=== PATIENT | female | born 1950 | race Caucasian/White ===

== ENCOUNTER 2023-11-06 18:13 | Observation (INO) | payer MEDICARE ==
[~2023-11-06] VITALS: Ht 157.5 cm; Wt 99.8 kg
[~2023-11-06 18:13] MED LIST: ASPIRIN81 MG PO; ATORVASTATIN CA20 MG PO; LOSARTAN POTAS100 MG PO; MELOXICAM7.5 MG PO; METOPROLOL TART25 MG PO; NOVOLIN N100 UNIT/1 SQ; PLAVIX75 MG PO; TYLENOL WITH C1 EACH PO; ULTRAM50 MG PO
[2023-11-06 19:06] LABS: BASOPHILS % 0.1 % (0.0-1.0); EOSINOPHILS # (AUTO) 0.1 (0.0-0.4); EOSINOPHILS % 1.4 % (0.0-6.0); HEMATOCRIT 37.3 % (34.2-44.1); HEMOGLOBIN 12.2 g/dL (12.0-16.0); LYMPHOCYTES % 28.1 % (18.0-39.1); MEAN CORPUSCULAR HEMOGLOBIN 30.6 pg (28-32); MEAN CORPUSCULAR HGB CONC 32.7 g/dL (31-35); MEAN CORPUSCULAR VOLUME 93.5 fL (81-99); MONOCYTES # (AUTO) 0.7 (0.2-0.8); MONOCYTES % 9.7 % (4.4-11.3); NEUTROPHILS # (AUTO) 4.3 (2.1-6.9); NEUTROPHILS % 60.6 % (38.7-80.0); PLATELET COUNT 321 x10e3/uL (140-360); RED BLOOD COUNT 3.99 x10e6/uL (3.6-5.1); RED CELL DISTRIBUTION WIDTH 13.3 % (11.7-14.4); WHITE BLOOD COUNT 7.08 x10e3/uL (4.8-10.8)
[2023-11-06] MEDS: Morphine 4mg INJECTION 4 MG/ML INJ IV ONE (19:12)
[2023-11-06] MEDS: ONDANSETRON HCL INJ 2MG/ML 2ML 2 MG/ML VIAL IV STA ×2 (19:12→21:03)
[2023-11-06] MEDS: SODIUM CHLORIDE 0.9% 1000ML 1,000 ML IV ONE (19:13)
[2023-11-06 19:20] LABS: ALBUMIN 3.9 g/dL (3.5-5.0); ALBUMIN/GLOBULIN RATIO 1.1 (0.8-2.0); BILIRUBIN,TOTAL 0.5 mg/dL (0.2-1.2); CREATININE, SERUM 0.99 mg/dL (0.57-1.11); TOTAL PROTEIN 7.6 g/dL (6.5-8.1)
[2023-11-06] MEDS ORDERED: IOPAMIDOL 370 MG/ML 100 ML INFUS..BTL INJ ONE (19:40)
[2023-11-06] MEDS ORDERED: ONDANSETRON HCL INJ 2MG/ML 2ML 2 MG/ML VIAL ONE (20:06)
[2023-11-06 21:02] LABS: BILIRUBIN,URINE NEGATIVE (NEGATIVE); CLARITY,URINE SL CLOUDY (CLEAR); COLOR,URINE YELLOW (YELLOW); GLUCOSE, URINE 500 (NEGATIVE); KETONES,URINE NEGATIVE (NEGATIVE); LEUKOCYTE ESTERASE ,URINE NEGATIVE (NEGATIVE); NITRITE,URINE NEGATIVE (NEGATIVE); PH,URINE 6 (5 - 7); PROTEIN,URINE DIPSTICK 1+ (NEGATIVE); URINE UROBILINOGEN 0.2 mg/dL (0.2 - 1)
[2023-11-06] MEDS: HALOPERIDOL LACTATE 5 MG/ML VIAL IV ONE (21:03)
[2023-11-06 21:20] LABS: EPITHELIAL CELLS,URINE MODERATE /LPF; RBC,URINE 0-5 /HPF (0-5)
[2023-11-06] MEDS ORDERED: MELATONIN 5 MG TABLET PO PRN (23:00)
[2023-11-06] MEDS: SODIUM CHLORIDE 0.9% 1000ML 1,000 ML IV SCH (23:06)
[2023-11-06] MEDS: Morphine 4mg INJECTION 4 MG/ML INJ IV PRN (23:07)
[2023-11-06 23:34] VITALS: TEMP 98.3
[2023-11-07] VITALS (14 sets, daily range): BP systolic 138–169; BP diastolic 76–88; PULSE 68–101; RESP 16–20; TEMP 97.5–98.9; O2SAT 94–100
[2023-11-07] MEDS: ONDANSETRON HCL INJ 2MG/ML 2ML 2 MG/ML VIAL IV PRN (00:49)
[2023-11-07] MEDS ORDERED: LEVEMIR100 UNIT/1 SC (01:09)
[2023-11-07] MEDS ORDERED: NOVOLOG MI100 UNIT/1 SC (01:09)
[2023-11-07] MEDS ORDERED: BENICAR5 MG PO (01:12)
[2023-11-07] MEDS: FAMOTIDINE 20 MG TAB PO PRN (01:19)
[2023-11-07 05:48] LABS: BASOPHILS % 0.3 % (0.0-1.0); EOSINOPHILS # (AUTO) 0.1 (0.0-0.4); HEMOGLOBIN 11.4 g/dL (12.0-16.0); LYMPHOCYTES # (AUTO) 2.3 (1.0-3.2); LYMPHOCYTES % 32.2 % (18.0-39.1); MEAN CORPUSCULAR HEMOGLOBIN 30.3 pg (28-32); MEAN CORPUSCULAR HGB CONC 31.7 g/dL (31-35); MEAN CORPUSCULAR VOLUME 95.7 fL (81-99); MONOCYTES # (AUTO) 0.7 (0.2-0.8); MONOCYTES % 9.3 % (4.4-11.3); NEUTROPHILS % 56.9 % (38.7-80.0); PLATELET COUNT 285 x10e3/uL (140-360); RED BLOOD COUNT 3.76 x10e6/uL (3.6-5.1); RED CELL DISTRIBUTION WIDTH 13.5 % (11.7-14.4); WHITE BLOOD COUNT 6.98 x10e3/uL (4.8-10.8)
[2023-11-07 06:30] LABS: ALBUMIN 3.5 g/dL (3.5-5.0); ALBUMIN/GLOBULIN RATIO 1.1 (0.8-2.0); ANION GAP 14.3 mmol/L (8-16); BILIRUBIN,TOTAL 0.5 mg/dL (0.2-1.2); CALCIUM 8.4 mg/dL (8.4-10.2); CREATININE, SERUM 1.08 mg/dL (0.57-1.11); POTASSIUM 4.3 mmol/L (3.5-5.1); TOTAL PROTEIN 6.7 g/dL (6.5-8.1)
[2023-11-07 09:46] LABS: CHOL/HDL RATIO 2.8 (3.0-3.6)
[2023-11-07] MEDS: PROMETHAZINE 12.5MG/ NACL 0.9% 12.5 MG/50 ML BAG IV PRN (10:05)
[2023-11-07] MEDS: ASPIRIN 81 MG CHEW TAB PO SCH (10:05)
[2023-11-07] MEDS: OLMESARTAN MEDOXOMIL 5 MG TABLET PO SCH (10:05)
[2023-11-07] MEDS: HYDRALAZINE HCL 20 MG/ML VIAL IV PRN (12:03)
[2023-11-07] MEDS: HYDROCODONE/APAP 5MG-325MG TAB PO PRN (18:01)
[2023-11-07] MEDS: ACETAMINOPHEN 325 MG TAB PO PRN (22:22)
[2023-11-08] VITALS: BP 161/95; PULSE 76; RESP 18; TEMP 98; O2SAT 99
[2023-11-08 04:00] VITALS: BP 158/79; PULSE 79; RESP 20; TEMP 98.7; O2SAT 100
[2023-11-08 05:46] LABS: BASOPHILS % 0.5 % (0.0-1.0); EOSINOPHILS # (AUTO) 0.3 (0.0-0.4); HEMATOCRIT 32.6 % (34.2-44.1); HEMOGLOBIN 10.1 g/dL (12.0-16.0); LYMPHOCYTES # (AUTO) 2.2 (1.0-3.2); LYMPHOCYTES % 34.1 % (18.0-39.1); MEAN CORPUSCULAR HEMOGLOBIN 29.8 pg (28-32); MEAN CORPUSCULAR VOLUME 96.2 fL (81-99); MONOCYTES # (AUTO) 0.7 (0.2-0.8); MONOCYTES % 10.3 % (4.4-11.3); NEUTROPHILS # (AUTO) 3.2 (2.1-6.9); NEUTROPHILS % 49.8 % (38.7-80.0); PLATELET COUNT 261 x10e3/uL (140-360); RED BLOOD COUNT 3.39 x10e6/uL (3.6-5.1); RED CELL DISTRIBUTION WIDTH 13.5 % (11.7-14.4); WHITE BLOOD COUNT 6.43 x10e3/uL (4.8-10.8)
[2023-11-08 06:23] LABS: ALBUMIN 3.2 g/dL (3.5-5.0); ALBUMIN/GLOBULIN RATIO 1.2 (0.8-2.0); ANION GAP 11.7 mmol/L (8-16); BILIRUBIN,TOTAL 0.5 mg/dL (0.2-1.2); CALCIUM 8.2 mg/dL (8.4-10.2); CREATININE, SERUM 0.96 mg/dL (0.57-1.11); POTASSIUM 3.7 mmol/L (3.5-5.1); TOTAL PROTEIN 5.9 g/dL (6.5-8.1)
[2023-11-08 08:00] VITALS: BP 158/79; PULSE 79; RESP 20; TEMP 98.7; O2SAT 100
[2023-11-08 08:14] VITALS: BP 140/81; PULSE 66; RESP 18; TEMP 97.4; O2SAT 98
[2023-11-08] MEDS ORDERED: ASPIRIN CHEW81 MG PO (10:18)
[2023-11-08] MEDS ORDERED: MELOXICAM15 MG PO (10:18)
[2023-11-08] MEDS ORDERED: HYDROCODON-ACE1 EA11 PO (10:18)
[2023-11-08 11:28] VITALS: BP 134/80; PULSE 70; RESP 19; TEMP 98; O2SAT 100
== END 2023-11-08 11:55 | disposition home or self-care (01) ==
LOC: ER 18:21 → ERHOLD 22:46 → MED/SURG3 11-07 00:19
PROVIDERS: ADMIT Family Medicine Adult Medicine; ATTEND Family Medicine Adult Medicine
DX: R10.32 Left lower quadrant pain (principal); R11.2 Nausea with vomiting, unspecified; R19.7 Diarrhea, unspecified; E11.65 Type 2 diabetes mellitus with hyperglycemia; Z79.4 Long term (current) use of insulin; M16.12 Unilateral primary osteoarthritis, left hip; M54.50 Low back pain, unspecified; G89.29 Other chronic pain; I10 Essential (primary) hypertension; E78.5 Hyperlipidemia, unspecified; I25.10 Atherosclerotic heart disease of native coronary artery without angina pectoris; Z95.5 Presence of coronary angioplasty implant and graft; K57.30 Diverticulosis of large intestine without perforation or abscess without bleeding; E66.01 Morbid (severe) obesity due to excess calories; Z68.41 Body mass index [BMI] 40.0-44.9, adult; D35.02 Benign neoplasm of left adrenal gland; D35.01 Benign neoplasm of right adrenal gland; Z11.52 Encounter for screening for COVID-19; Z85.038 Personal history of other malignant neoplasm of large intestine; Z90.49 Acquired absence of other specified parts of digestive tract; Z79.899 Other long term (current) drug therapy; Z79.02 Long term (current) use of antithrombotics/antiplatelets; Z79.82 Long term (current) use of aspirin
CPT/HCPCS: 36415 ×3; 73502; 73551; 74177; 80053 ×3; 80061; 81001; 82948 ×2; 83690; 84484; 85025 ×3; 94799; 97116; 97162; 99284; G0378 ×3; J0360; J1630; J2270 ×2; J2405 ×2; J2550; J7030 ×2; Q9967; U0002

== ENCOUNTER 2024-07-17 08:32 | Inpatient (IN) | payer MEDICARE ==
[~2024-07-17] VITALS: Ht 157.5 cm; Wt 94.3 kg
[~2024-07-17 08:32] MED LIST changes: +AMLODIPINE BESYL5 MG PO; +ASPIRIN CHEW81 MG PO; +ASPIRIN81 MG; +BENICAR20 MG PO; +BENICAR5 MG PO; +CELEBREX200 MG PO; +D3-5000125 MCG; +DROPLET NE EAC; +FUROSEMIDE40 MG PO; +HYDROCODON-ACE1 EA11 PO; +HYDROCODON-ACE1 EA15 PO; +K-DUR10 MEQ PO; +K2-D3 10,000 U1 EACH; +LEVEMIR SQ; +LEVEMIR100 UNIT/1 SC; +MELOXICAM15 MG PO; +MIRTAZAPINE7.5 MG PO; +NOVOLOG MI100 UNIT/1 SC; +NOVOLOG100 UNIT/1 SC; +OLMESARTAN MEDO20 MG; +SPIRONOLACTONE25 MG PO; +TOUJEO SOL300 UNIT/1; +TOUJEO SOL300 UNIT/1 SQ
[2024-07-17] MEDS: LACTATED RINGER'S 1,000 ML ONE (09:23)
[2024-07-17] MEDS: CEFAZOLIN SODIUM 2 GM ONE (10:35)
[2024-07-17] MEDS ORDERED: FENTANYL CITRATE/PF 100MCG/2 ML INJ ONE ×3 (11:09→13:25)
[2024-07-17] MEDS ORDERED: MIDAZOLAM HCL 2 MG/2 ML VIAL ONE (11:09)
[2024-07-17] MEDS ORDERED: ONDANSETRON HCL INJ 2MG/ML 2ML 2 MG/ML VIAL ONE (11:54)
[2024-07-17] MEDS ORDERED: FAMOTIDINE 20 MG/2 ML VIAL IV ONE (11:54)
[2024-07-17] MEDS ORDERED: SUCCINYLCHOLINE CHLORIDE 20 MG/ML 10ML VIAL ONE (11:54)
[2024-07-17] MEDS ORDERED: ROCURONIUM BROMIDE 1 ML IV ONE (11:54)
[2024-07-17] MEDS ORDERED: ACETAMINOPHEN 1000 MG/100 ML 100 ML IV ONE (11:54)
[2024-07-17] MEDS ORDERED: DEXAMETHASONE SOD PHOS INJ 4 MG/ML SDV ONE (11:54)
[2024-07-17] MEDS ORDERED: SEVOFLURANE INHAL SOLN 250 ML PEN BTL ONE (11:54)
[2024-07-17] MEDS ORDERED: EPHEDRINE SULFATE INJ 50 MG/ML VIAL ONE (12:29)
[2024-07-17] MEDS ORDERED: PROPOFOL IV EMULSION 10 MG/ML 20 ML VIAL ONE ×2 (12:38)
[2024-07-17] MEDS ORDERED: SUGAMMADEX SODIUM 200 MG/2 ML VIAL IV ONE (13:00)
[2024-07-17] MEDS ORDERED: TRANEXAMIC ACID 1,000 MG/10 ML ML ONE ×2 (13:24→13:25)
[2024-07-17] MEDS ORDERED: LIDOCAINE HCL 2% LOCAL INJ 5 ML SDV VIAL INJ ONE (13:57)
[2024-07-17] MEDS: FENTANYL CITRATE/PF 100MCG/2 ML INJ IV ONE ×2 (14:20→14:25)
[2024-07-17] MEDS: ONDANSETRON HCL INJ 2MG/ML 2ML 2 MG/ML VIAL IV ONE (15:07)
[2024-07-17 15:22] VITALS: BP 110/71; PULSE 96; RESP 16; TEMP 98.7; O2SAT 100
[2024-07-17] MEDS ORDERED: DEXTROSE 50% SYRINGE 50 ML IV PRN ×2 (15:30→18:30)
[2024-07-17] MEDS ORDERED: ALBUTEROL/IPRATROPIUM 3 ML NEB NEB PRN (15:30)
[2024-07-17] MEDS ORDERED: POTASSIUM CHLORIDE 20 MEQ TAB CR PO PRN (15:30)
[2024-07-17] MEDS ORDERED: DIPHENHYDRAMINE HCL 25 MG CAP PO PRN (15:30)
[2024-07-17] MEDS ORDERED: HYDRALAZINE HCL 20 MG/ML VIAL IV PRN (15:30)
[2024-07-17 16:00] VITALS: BP 110/71; PULSE 96; RESP 16; TEMP 98.7; O2SAT 100
[2024-07-17 16:06] VITALS: PULSE 66; RESP 20; O2SAT 99
[2024-07-17] MEDS: FENTANYL CITRATE/PF 100MCG/2 ML INJ ONE (16:18)
[2024-07-17] MEDS: ROPIVACAINE/EPI/CLONIDINE/KET 50 ML SYRINGE INJ ONE (16:18)
[2024-07-17] MEDS ORDERED: ASPIRIN 81 MG CHEW TAB PO SCH (17:00)
[2024-07-17] MEDS: ENOXAPARIN SOD INJ 40 MG/0.4 ML SYR SC SCH (17:45)
[2024-07-17] MEDS: HYDROCODONE/APAP 7.5MG-325MG 1 EA TAB PO PRN (17:54)
[2024-07-17 20:00] VITALS: BP 125/74; PULSE 83; RESP 18; TEMP 97.3; O2SAT 98
[2024-07-17 20:05] VITALS: PULSE 83; RESP 18; O2SAT 98
[2024-07-17 21:00] VITALS: BP 125/74; PULSE 83; RESP 18; TEMP 97.3; O2SAT 98
[2024-07-17] MEDS: MELATONIN 5 MG TABLET PO PRN (21:21)
[2024-07-17] MEDS: CEFAZOLIN SODIUM 2 GM in SODIUM CHLORIDE 0.9% 100 ML IV SCH (21:21)
[2024-07-17] MEDS: INSULIN LISPRO 100 UNIT/1 ML 3ML VIAL SQ SCH (21:39)
[2024-07-17] MEDS: INSULIN GLARGINE 100 UNITS/ML VIAL SQ SCH (21:42)
[2024-07-17] MEDS: Morphine 4mg INJECTION 4 MG/ML INJ IV PRN (23:49)
[2024-07-18] VITALS (11 sets, daily range): BP systolic 114–170; BP diastolic 52–84; PULSE 74–88; RESP 16–20; TEMP 97.4–98.3; O2SAT 96–100
[2024-07-18] MEDS: ONDANSETRON HCL INJ 2MG/ML 2ML 2 MG/ML VIAL IV PRN (04:03)
[2024-07-18 07:25] LABS: BASOPHILS # (AUTO) 0.1 (0.0-0.1); BASOPHILS % 0.2 % (0.0-1.0); HEMATOCRIT 31.1 % (34.2-44.1); HEMOGLOBIN 10.2 g/dL (12.0-16.0); LYMPHOCYTES # (AUTO) 1.5 (1.0-3.2); LYMPHOCYTES % 7.1 % (18.0-39.1); MEAN CORPUSCULAR HEMOGLOBIN 30.4 pg (28-32); MEAN CORPUSCULAR HGB CONC 32.8 g/dL (31-35); MEAN CORPUSCULAR VOLUME 92.6 fL (81-99); MONOCYTES # (AUTO) 1.3 (0.2-0.8); MONOCYTES % 6.1 % (4.4-11.3); NEUTROPHILS # (AUTO) 17.9 (2.1-6.9); PLATELET COUNT 293 x10e3/uL (140-360); RED BLOOD COUNT 3.36 x10e6/uL (3.6-5.1); RED CELL DISTRIBUTION WIDTH 14.5 % (11.7-14.4); WHITE BLOOD COUNT 20.85 x10e3/uL (4.8-10.8)
[2024-07-18 07:46] LABS: ANION GAP 14.5 mmol/L (8-16); CALCIUM 8.6 mg/dL (8.4-10.2); CREATININE, SERUM 1.08 mg/dL (0.57-1.11); POTASSIUM 4.5 mmol/L (3.5-5.1)
[2024-07-18] MEDS: PANTOPRAZOLE SOD 40 MG TABEC PO SCH (08:32)
[2024-07-18] MEDS: DOCUSATE SODIUM 100 MG CAP PO PRN (21:06)
[2024-07-19] VITALS (9 sets, daily range): BP systolic 120–145; BP diastolic 59–71; PULSE 75–88; RESP 15–19; TEMP 97.6–99; O2SAT 96–100
[2024-07-19 05:09] LABS: BASOPHILS % 0.2 % (0.0-1.0); EOSINOPHILS # (AUTO) 0.1 (0.0-0.4); EOSINOPHILS % 0.4 % (0.0-6.0); HEMATOCRIT 30.5 % (34.2-44.1); HEMOGLOBIN 9.8 g/dL (12.0-16.0); LYMPHOCYTES # (AUTO) 2.7 (1.0-3.2); LYMPHOCYTES % 17.6 % (18.0-39.1); MEAN CORPUSCULAR HEMOGLOBIN 30.2 pg (28-32); MEAN CORPUSCULAR HGB CONC 32.1 g/dL (31-35); MEAN CORPUSCULAR VOLUME 93.8 fL (81-99); MONOCYTES # (AUTO) 1.3 (0.2-0.8); MONOCYTES % 8.2 % (4.4-11.3); NEUTROPHILS # (AUTO) 11.2 (2.1-6.9); NEUTROPHILS % 73.3 % (38.7-80.0); PLATELET COUNT 278 x10e3/uL (140-360); RED BLOOD COUNT 3.25 x10e6/uL (3.6-5.1); RED CELL DISTRIBUTION WIDTH 14.8 % (11.7-14.4); WHITE BLOOD COUNT 15.31 x10e3/uL (4.8-10.8)
[2024-07-19 05:28] LABS: ANION GAP 15.1 mmol/L (8-16); CALCIUM 8.5 mg/dL (8.4-10.2); CREATININE, SERUM 1.14 mg/dL (0.57-1.11); POTASSIUM 4.1 mmol/L (3.5-5.1)
[2024-07-19] MEDS: LIDOCAINE 4% PATCH TP PRN (08:43)
[2024-07-20] VITALS (10 sets, daily range): BP systolic 142–178; BP diastolic 54–85; PULSE 77–93; RESP 16–21; TEMP 97.4–98.4; O2SAT 98–100
[2024-07-20 04:50] LABS: BASOPHILS % 0.3 % (0.0-1.0); EOSINOPHILS # (AUTO) 0.3 (0.0-0.4); EOSINOPHILS % 2.5 % (0.0-6.0); HEMATOCRIT 28.5 % (34.2-44.1); HEMOGLOBIN 9.1 g/dL (12.0-16.0); LYMPHOCYTES # (AUTO) 2.6 (1.0-3.2); LYMPHOCYTES % 25.1 % (18.0-39.1); MEAN CORPUSCULAR HEMOGLOBIN 29.8 pg (28-32); MEAN CORPUSCULAR HGB CONC 31.9 g/dL (31-35); MEAN CORPUSCULAR VOLUME 93.4 fL (81-99); MONOCYTES # (AUTO) 1.2 (0.2-0.8); MONOCYTES % 11.8 % (4.4-11.3); NEUTROPHILS # (AUTO) 6.3 (2.1-6.9); NEUTROPHILS % 59.8 % (38.7-80.0); PLATELET COUNT 238 x10e3/uL (140-360); RED BLOOD COUNT 3.05 x10e6/uL (3.6-5.1); RED CELL DISTRIBUTION WIDTH 14.8 % (11.7-14.4); WHITE BLOOD COUNT 10.48 x10e3/uL (4.8-10.8)
[2024-07-20 05:16] LABS: ANION GAP 13.3 mmol/L (8-16); CALCIUM 8.3 mg/dL (8.4-10.2); CREATININE, SERUM 0.95 mg/dL (0.57-1.11); POTASSIUM 4.3 mmol/L (3.5-5.1)
[2024-07-20] MEDS: AMLODIPINE BESYLATE 10 MG TAB PO SCH (09:55)
[2024-07-20] MEDS: OLMESARTAN 20 MG TAB PO SCH (09:55)
[2024-07-20] MEDS: BISACODYL 10 MG SUPP PR ONE (09:56)
[2024-07-20] MEDS: LACTULOSE SYRUP 20 GM/30 ML UDC PO PRN (15:34)
[2024-07-20] MEDS: CITRATE OF MAGNESIA 300ML BOTTLE PO ONE (16:39)
[2024-07-20] MEDS: ONDANSETRON HCL INJ 2MG/ML 2ML 2 MG/ML VIAL IV PRN (22:59)
[2024-07-21] VITALS (7 sets, daily range): BP systolic 94–165; BP diastolic 49–80; PULSE 72–88; RESP 18–20; TEMP 98.1–99; O2SAT 97–100
[2024-07-21] MEDS: METOCLOPRAMIDE HCL 10 MG/2ML VIAL IV SCH (13:34)
[2024-07-21] MEDS: DICYCLOMINE HCL 10 MG CAP PO SCH (16:25)
[2024-07-21] MEDS ORDERED: IOPAMIDOL 370 MG/ML 100 ML INFUS..BTL INJ ONE (20:12)
== END 2024-07-21 19:52 | DRG 470 ==
LOC: OR 08:32 → PACU V 14:24 → MED/SURG 15:14 → OBSVTOIN 07-19 13:58
PROVIDERS: ADMIT Internal Medicine; ATTEND Internal Medicine
PROC: 0SRB0JZ Replacement of Left Hip Joint with Synthetic Substitute, Open Approach (ICD-10-PCS; principal; 2024-07-19)
DX: M16.0 Bilateral primary osteoarthritis of hip (principal); E11.42 Type 2 diabetes mellitus with diabetic polyneuropathy; I10 Essential (primary) hypertension; R53.81 Other malaise; K59.00 Constipation, unspecified; M54.9 Dorsalgia, unspecified; Z83.3 Family history of diabetes mellitus; Z82.49 Family history of ischemic heart disease and other diseases of the circulatory system
CPT/HCPCS: 36415; 72170; 74018; 74177; 80048; 82948; 85025; 86850; 86900; 93005; 94799; C1713; G0378; J0330; J1100; J1650; J1815; J2003; J2250; J2270; J2405; J2470; J2765; J7050; Q9967